=== PATIENT | male | born 1950 | race Caucasian/White ===

== ENCOUNTER 2021-09-04 08:30 | Outpatient (CLI) | payer MEDICARE, BC, SELFPAY | END 2021-09-04 08:31 | disposition home or self-care (01) | PROVIDERS: PCP Family Medicine; Visit Provider Family Medicine | DX: R94.31 Abnormal electrocardiogram [ECG] [EKG] (principal) | CPT/HCPCS: 93306 ==

== ENCOUNTER 2021-09-25 10:11 | Outpatient (CLI) | payer MEDICARE, BC, SELFPAY ==
[2021-09-25 17:30] LABS: C Reactive Protein* < 0.5 mg/dL (0.5-1.0)
[2021-09-25 17:57] LABS: Erythrocyte SedimentationRate* 7 mm/hr (2-15)
[2021-09-27 13:18] LABS: Rheumatoid Factor < 10 IU/mL (0-14)
== END 2021-09-25 10:12 | disposition home or self-care (01) ==
PROVIDERS: PCP Family Medicine; Visit Provider Family Medicine
DX: M25.561 Pain in right knee (principal); M25.562 Pain in left knee
CPT/HCPCS: 85651; 86140; 86431; 86618

== ENCOUNTER 2021-09-29 12:45 | Outpatient (CLI) | payer MEDICARE, BC, SELFPAY ==
[2021-09-29 13:38] VITALS: BP 156/82; PULSE 72; RESP 18
--- NOTE | 2021-09-29 17:03 | P.STN_ITS ---
Stress Test Note Date Date Seen: 09/29/21 Date of test: 09/29/21 Providers Primary care provider: Brien Chandra Stress test physician: Greg Cruz Stress Test Note Stress test ordered: Stress Echo Indication for test: chest pain Results discussion: Patient is a 71-year-old gentleman who presents here for outpatient cardiac stress testing, test ordered is a stress echo, cardiac stress test medical history form is reviewed, risks benefits and side effects are discussed with the patient he would like to proceed. Pretest EKG shows normal sinus rhythm, indeterminate bundle branch block is noted, ventricular rate is 58 with a BP of 132/82. Patient is exercised following Jorge protocol for 9 minutes, metabolic equivalent of 10.5 Mets, he attained a maximum heart rate, of 145, which is 113% of the predicted. During this test there is no significant ST wave changes suggestive of ischemia. There is some gentle upsloping noted of his ST segments, no dysrhythmias noted. Impression: Negative electrographic portion of stress echo. Conditioning felt to be ex cellent Follow up suggested: Follow-up with primary care suggested, wait for Cardiology over-read of the echo portion. Patient left this testing facility in excellent condition.
== END 2021-09-29 12:46 | disposition home or self-care (01) ==
LOC: STRESS 12:45
PROVIDERS: PCP Family Medicine; Visit Provider Family Medicine
DX: R07.89 Other chest pain (principal)
CPT/HCPCS: 93016; 93325; 93351

== ENCOUNTER 2022-10-07 14:31 | Outpatient (CLI) | payer MEDICARE, BC, SELFPAY | END 2022-10-07 14:32 | disposition home or self-care (01) | PROVIDERS: PCP Family Medicine; Visit Provider Nurse Practitioner Family | DX: G62.9 Polyneuropathy, unspecified (principal) | CPT/HCPCS: 85651; 86431 ==

== ENCOUNTER 2023-04-20 11:54 | Outpatient (CLI) | payer MEDICARE, BC, SELFPAY | END 2023-04-20 11:55 | disposition home or self-care (01) | PROVIDERS: PCP Family Medicine; Visit Provider Family Medicine | DX: R97.20 Elevated prostate specific antigen [PSA] (principal); Z13.1 Encounter for screening for diabetes mellitus | CPT/HCPCS: 80048; 84153 ==

== ENCOUNTER 2024-05-21 14:45 | Outpatient (CLI) | payer MEDICARE, BC, SELFPAY | END 2024-05-21 14:46 | disposition home or self-care (01) | LOC: NFLDREF 05-22 10:42 | PROVIDERS: PCP Family Medicine; Referring Provider Family Medicine; Visit Provider Nurse Practitioner Family | DX: R81 Glycosuria (principal); R30.0 Dysuria | CPT/HCPCS: 87086 ==

== ENCOUNTER 2024-10-02 12:40 | Outpatient (CLI) | payer MEDICARE, BC, SELFPAY ==
[2024-10-02] MEDS: DOBUTamine 250 MG in 5 % DEXTROSE 250 ML 230 ML 55.2 MG IVPB (13:54)
[2024-10-02 14:18] VITALS: BP 127/84; PULSE 94; RESP 16
--- NOTE | 2024-10-02 14:34 | W.PM.STED ---
Stress Test Note Date Date of test: 10/02/24 Providers Primary care provider: Brien Chandra Stress test physician: Greg Cruz Stress Test Note Stress test ordered: Dobutamine Echo Indication for test: Chest pain Stress test medicine: Dobutamine Results discussion: This pleasant gentleman presents for the above test, after discussion the risks benefits and side effects he would like to proceed. Pretest EKG shows normal sinus rhythm with a ventricular rate of 66 and a blood pressure 176/107. Standard dobutamine echo protocol is done, dobutamine protocol is used over a time course of 8 minutes and 10 seconds, dobutamine infusion maxed out at 40 mcg. Test is terminated because of attainment of maximum heart rate, of 131 beats. This is greater than his target of 125. Maximum blood pressure is 152/71. During this test other than some hip discomfort which she attributed to other noncardiac issues, he had no chest pain shortness of breath or any other issues. No appreciable ST wave changes are notable. He recovered normally. There were no complications. Impression: Negative electrographic portion of dobutamine echo, subjectively negative Follow up suggested: Await echo images, clinical correlation with these will be needed. Patient left this testing facility in good condition there were no complications
== END 2024-10-02 14:19 | disposition home or self-care (01) ==
LOC: STRESS 12:43
PROVIDERS: PCP Family Medicine; Visit Provider Family Medicine
DX: R07.9 Chest pain, unspecified (principal); I20.89 Other forms of angina pectoris
CPT/HCPCS: 93016; 93325; 93351; J1250; J7050